=== PATIENT | female | born 1990 | race Caucasian/White ===

== ENCOUNTER → 2017-05-01 | Outpatient (CLI) | payer OTHER ==
--- NOTE | 2017-05-01 11:02 | US ---
EXAMINATION TYPE: US OB <= 14 wk fetus DATE OF EXAM: 05/01/2017 COMPARISON: NONE CLINICAL HISTORY: 046.91 Bleeding,Spotting - Antepartum. Light bleeding this weekend x 1 day. No pre vious ultrasound for this EXAM PERFORMED: Transabdominal (TA) EXAM MEASUREMENTS: GESTATIONAL AGE / DATING Dates by LMP: (8 weeks/5 days) EDC: 12/06/2017 Dates by Current Scan for: (12 weeks/2 days) EDC: 11/11/2017 MATERNAL ANATOMY Uterus: 10.7 x 8.4 x 7.0 Right Ovary: Not visualized due to overlying bowel gas Left Ovary: not visualized due to overlying bowel gas Post CDS / Adnexa: no free fluid Presence of free fluid: no Presence of subchorionic bleed: Midline/left hypoechoic heterogenous lesion = 4.3 x 3.5 x 1.6 cm GESTATION / SURVEY CRL: 5.6 cm (12 weeks/2 days) MSD: seen, not measured Yolk Sac (normal less than 6mm): not seen Heart Rate: 156 bpm Rhythm: Normal IUP: Viable IUP Date of LMP: 03/01/2017 Beta HcG (if available): not available IMPRESSION: LIve single IUP measuring 12 weeks 2 days. Midline/left subchorionic bleed seen.
== END | disposition home or self-care (01) ==
LOC: LABWHC1 09:49
PROVIDERS: ATTEND Obstetrics & Gynecology
DX: O46.91 Antepartum hemorrhage, unspecified, first trimester (principal)
CPT/HCPCS: 36415; 76801; 84702

== ENCOUNTER → 2017-07-14 | Outpatient (CLI) | payer OTHER ==
[2017-07-14 18:14] LABS: Glucose 95 mg/dL (74-99); Non-African American GFR(MDRD) >60 (>60 ml/min/1.73 sqM)
[2017-07-14 18:23] LABS: CH 30.5; CHCM 34.1; HCT 32.7 % (34.0-46.0); HDW 2.82; HGB 10.9 gm/dL (11.4-16.0); MCHC 33.3 g/dL (31.0-37.0); MCV 90.1 fL (80.0-100.0); Mean Platelet Volume 8.8; RBC 3.63 m/uL (3.80-5.40); RDW 14.3 % (11.5-15.5); WBC 8.2 k/uL (3.8-10.6)
[2017-07-14 19:27] LABS: Hepatitis B Surface Ag Index 0.05
[2017-07-15 07:16] LABS: Toxoplasma Antibody (IgG) <3.0 IU/mL (<7.2)
== END ==
LOC: LABWHC1 16:48
PROVIDERS: ATTEND Obstetrics & Gynecology
DX: O26.812 Pregnancy related exhaustion and fatigue, second trimester (principal); O99.282 Endocrine, nutritional and metabolic diseases complicating pregnancy, second trimester; E03.9 Hypothyroidism, unspecified; Z3A.00 Weeks of gestation of pregnancy not specified
CPT/HCPCS: 36415; 82565; 82947; 84439; 84443; 85027; 86762; 86777; 86778; 86780; 86850; 86900; 86901; 87340; 87390

== ENCOUNTER → 2017-08-29 | Outpatient (CLI) | payer OTHER ==
[2017-08-29 12:48] LABS: Glucose 3 Hour, Gest 109 mg/dL
== END | disposition home or self-care (01) ==
LOC: LABWHC1 08:24
PROVIDERS: ATTEND Obstetrics & Gynecology
DX: O99.810 Abnormal glucose complicating pregnancy (principal); Z3A.00 Weeks of gestation of pregnancy not specified
CPT/HCPCS: 36415; 82951; 82952; 84439; 84443

== ENCOUNTER → 2017-10-13 | Outpatient (CLI) | payer OTHER ==
--- NOTE | 2017-10-17 07:02 | US ---
EXAMINATION TYPE: US OB >= 14 wk fetus DATE OF EXAM: 10/13/2017 COMPARISON: None CLINICAL HISTORY: O36.63X0 Large for dates 3rd trimester TECHNIQUE: Transabdominal (TA) GESTATIONAL AGE / DATING Physician Established: (35 weeks/6 days) EDC: 11/11/17 Dates by LMP: unknown Dates by First Scan: (35 weeks/6 days) EDC: 11/11/17 Dates by Current Scan: (35 weeks/6 days) EDC: 11/11/17 SURVEY IUP: Single PLACENTA: Fundal PREVIA: No Previa ALONDRA: 12.9 cm CERVICAL LENGTH (transabdominal: norm > 3.0cm): 3.3 cm BIOMETRY PRESENTATION: Vertex LIE: Longitudinal BPD: 9.0 cm 36 weeks / 4 days HC: 32.9 cm 37 weeks / 3 days AC: 29.8 cm 33. weeks / 6 days FL: 6.9 cm 35 weeks / 3 days ESTIMATED WEIGHT IN GRAMS: 2536 grams ESTIMATED WEIGHT IN LBS/OZ: 5 lbs. 9 oz. WEIGHT PERCENTAGE BASED ON ESTABLISHED DATES: 24% HC/AC: 1.1 FL/AC: 23% slightly low HEART RATE: 165 bpm RHYTHM: Normal IMPRESSION: Single live intrauterine with a sonographic gestational age of 35 weeks and 6 days and orestes mated date of delivery of 11/04/1717, concordant with the physician established dates. ALONDRA within norm al limits at 12.9. Weight percentage based on established dates of 24%.
== END | disposition home or self-care (01) ==
LOC: RADUSWWP 15:43
PROVIDERS: ATTEND Obstetrics & Gynecology
DX: O36.63X0 Maternal care for excessive fetal growth, third trimester, not applicable or unspecified (principal); Z3A.35 35 weeks gestation of pregnancy
CPT/HCPCS: 76805

== ENCOUNTER 2017-10-20 19:12 | Outpatient (CLI) | payer OTHER ==
[2017-10-20 19:33] VITALS: BP 139/92; PULSE 100; RESP 16; TEMP 97.5
--- NOTE | 2018-01-05 12:09 | P.MSEPDOC ---
Presenting Problems - Arrival Data Date of Arrival on Unit: 10/20/17 Time of Arrival on Unit: 19:12 Mode of Transport: Ambulatory Medical History - Information : 2 Para: 1 Term: 1 : 0 Abortions: Spontaneous or Elective: 0 Number of Living Children: 1 - Gestational Age Gestational Age by MARÍA (wks/days): 36 Weeks and 6 Days Vital Signs - Temperature Temperature: 97.5 F Temperature Source: Temporal Artery Scan - Pulse Right Brachial Pulse Rate: 100 Pulse Assessment Method: Automatic Cuff - Respirations Respiratory Rate: 16 Oxygen Delivery Method: Room Air O2 Sat by Pulse Oximetry: 100 - Blood Pressure Right Arm Blood Pressure: 139/92 Blood Pressure Mean: 107 Blood Pressure Source: Automatic Cuff Medical Screen Scoring (Post) - Cervical Exam Dilation: 1-3 cm = 1 Effacement: More than 50% = 2 Membranes: Intact - Uterine Contractions Frequency: N/A Duration: N/A Intensity: N/A - Maternal Vital Signs Maternal Temperature: N/A - Assessment Heart Rate - NICHD Category: Category I (Normal) = 0 NST: Reactive Position: N/A Station: N/A - Total Score Total Score (Post): 3 - Post Treatment Level of Risk Post Treatment Level of Risk: Low (0-5) Physician Notification (Post) - Physician Notified Physician Notified Date: 10/20/17 Physician Notified Time: 19:47 Physician/Practitioner Notified:: kellen - Notification Comment Comment: d/c home, follow up with Dr. Seo Monday as scheduled. Rest over the weekend. Disposition - Disposition OB Disposition: Discharge to home Discharge Date: 10/20/17 Discharge Time: 19:50 I agree with the RN Medical Screening Exam: Yes Risk & Benefit of care provided described in d/c instruction: Yes Diagnosis: FALSE LABOR BEFORE 37 COMPLETED WEEKS OF GEST, THIRD TRI
== END 2017-10-20 19:50 | disposition home or self-care (01) ==
LOC: FBPOP 19:12
PROVIDERS: ATTEND Obstetrics & Gynecology
DX: O47.03 False labor before 37 completed weeks of gestation, third trimester (principal); Z3A.36 36 weeks gestation of pregnancy
CPT/HCPCS: 59025; 84112; G0463; 99213

== ENCOUNTER 2017-10-21 23:55 | Inpatient (IN) | payer OTHER ==
[2017-10-22] MEDS ORDERED: OXYTOCIN 10 UNIT/ML 1 ML VIAL IM PRN (00:29)
[2017-10-22] MEDS ORDERED: LIDOCAINE 1% (PF) 10 MG/ML (30 ML SDV) SQ PRN (00:29)
[2017-10-22] MEDS ORDERED: METHYLERGONOVINE 0.2 MG/ML 1 ML AMP IM PRN (00:29)
[2017-10-22] MEDS ORDERED: CARBOPROST TROMETHAMINE 250 MCG/ML 1 ML AMP IM PRN (00:29)
[2017-10-22] MEDS ORDERED: TERBUTALINE 1 MG/ML VIAL SQ PRN (00:29)
[2017-10-22] MEDS ORDERED: OXYTOCIN 20 UNITS/1000 ML NS 1,000 ML IV SCH ×2 (00:30→05:15)
[2017-10-22] MEDS: LACTATED RINGERS 1,000 ML IV SCH ×2 (00:58→03:02)
[2017-10-22 01:02] LABS: Basophils # (A) 0.1 k/uL (0-0.2); Basophils % (A) 1 %; Eosinophils # (A) 0.1 k/uL (0-0.7); Eosinophils % (A) 1 %; HGB 9.8 gm/dL (11.4-16.0); Hypochromasia Slight; Lymphocytes # (A) 2.5 k/uL (1.0-4.8); Lymphocytes % (A) 27 %; MCH 26.8 pg (25.0-35.0); MCHC 32.8 g/dL (31.0-37.0); MCV 81.7 fL (80.0-100.0); Mean Platelet Volume 8.9; Monocytes # (A) 0.6 k/uL (0-1.0); Monocytes % (A) 7 %; Neutrophils # (A) 5.9 k/uL (1.3-7.7); Neutrophils % (A) 64 %; Platelet Count 223 k/uL (150-450); Poikilocytosis Slight; RBC 3.67 m/uL (3.80-5.40); RDW 14.3 % (11.5-15.5); WBC 9.3 k/uL (3.8-10.6)
[2017-10-22 01:55] VITALS: BMI 36.7
--- NOTE | 2017-10-22 03:03 | P.HPOB ---
History of Present Illness H&P Date: 10/22/17 Chief Complaint: SROM 26 year old at 37 weeks 1 day presents with SROM at 1130pm on 10-21-17. The fluid was moderately bloody, she is mindy irregularly. heart tones 135-140 with moderate variability and reactive. Review of Systems All systems: negative Constitutional: Denies chills, Denies fever Eyes: denies blurred vision, denies pain Ears, nose, mouth and throat: Denies headache, Denies sore throat Cardiovascular: Denies chest pain, Denies shortness of breath Respiratory: Denies cough Gastrointestinal: Denies abdominal pain, Denies diarrhea, Denies nausea, Denies vomiting Genitourinary: Denies dysuria, Denies hematuria Musculoskeletal: Denies myalgias Integumentary: Denies pruritus, Denies rash Neurological: Denies numbness, Denies weakness Psychiatric: Denies anxiety, Denies depression Endocrine: Denies fatigue, Denies weight change Past Medical History Past Medical History: No Reported History Additional Past Medical History / Comment(s): OB history: First she had a vaginal delivery. This is her second and she had care with me since 15 weeks. O+, abs neg, Rub nonimmune, Treponemal ab neg, HIV NR, Hep B neg, toxo neg, GBS neg. Abnormal 1hr, normal 3hr GTT. HEr thyroid meds needed to be adjusted a few times during the . History of Any Multi-Drug Resistant Organisms: None Reported Past Surgical History: No Surgical Hx Reported Additional Past Anesthesia/Blood Transfusion Reaction / Comment(s): no hx of transfusion Past Psychological History: No Psychological Hx Reported Smoking Status: Never smoker Past Alcohol Use History: None Reported Past Drug Use History: None Reported - Past Family History Father Family Medical History: No Reported History Medications and Allergies Home Medications Medication Instructions Recorded Confirmed Type Levothyroxine Sodium [Synthroid] 175 mcg PO DAILY 10/22/17 10/22/17 History Pnv,Calcium 72/Iron/Folic Acid 1 tab PO DAILY 10/22/17 10/22/17 History [ Plus Tablet] Allergies Allergy/AdvReac Type Severity Reaction Status Date / Time No Known Allergies Allergy Verified 10/22/17 00:27 Exam Osteopathic Statement: *. No significant issues noted on an osteopathic structural exam other than those noted in the History and Physical/Consult. - Vital Signs Vital signs: Vital Signs Temp Pulse Resp BP Pulse Ox 10/22/17 00:10 97.9 F 86 16 125/80 99 Intake and Output 10/21/17 10/21/17 10/22/17 14:59 22:59 06:59 Other: Weight 97.069 kg Patient Weight 10/22/17 06:59 Weight 97.069 kg Heart: RRR Lungs: CTAB Abdomen: soft, nontender between contractions Extremeties: neg maia's Results Result Diagrams: 10/22/17 00:55 Abnormal Lab Results - Last 24 Hours (Table) 10/22/17 Range/Units 00:55 RBC 3.67 L (3.80-5.40) m/uL Hgb 9.8 L (11.4-16.0) gm/dL Hct 30.0 L (34.0-46.0) % Assessment and Plan (1) Spontaneous rupture of membranes Current Visit: Yes Status: Acute Code(s): [id number] - SNOMED Code(s): 996493152 Plan: 1. pitocin augmentation 2. pain control 3. anticipate normal vaginal delivery
--- NOTE | 2017-10-22 03:16 | P.MSEPDOC ---
Presenting Problems - Arrival Data Date of Arrival on Unit: 10/21/17 Time of Arrival on Unit: 23:57 Mode of Transport: Wheelchair - Complaint OB-Reason for Admission/Chief Complaint: Rule Out SROM Comment: SROM 2330 bloody fluid Medical History - Information : 2 Para: 1 Term: 1 : 0 Abortions: Spontaneous or Elective: 0 Number of Living Children: 1 - Gestational Age Gestational Age by MARÍA (wks/days): 37 Weeks and 1 Days Review of Systems - Review of Systems Constitutional: No problems Breast: No problems ENT: No problems Cardiovascular: No problems Respiratory: No problems Gastrointestinal: No problems Genitourinary: No problems Musculoskeletal: No problems Neurological: No problems Skin: No problems Vital Signs - Temperature Temperature: 97.9 F Temperature Source: Oral - Pulse Right Sitting Brachial Pulse Rate: 86 Pulse Assessment Method: Automatic Cuff - Respirations Respiratory Rate: 16 Oxygen Delivery Method: Room Air O2 Sat by Pulse Oximetry: 99 - Blood Pressure Right Arm Sitting Blood Pressure: 125/80 Blood Pressure Mean: 95 Blood Pressure Source: Automatic Cuff Medical Screen Scoring (Pre) - Cervical Exam Dilation: 1-3 cm = 1 Effacement: More than 50% = 2 Membranes: Ruptured = 3 - Uterine Contractions Frequency: > 5 minutes apart = 1 Duration: > 40 seconds = 2 Intensity: N/A - Maternal Vital Signs Maternal Temperature: N/A Signs of Preeclampsia: N/A Maternal Respirations: N/A - Pain Assessment Pain Location and Character: Abdomen Pain Scale Used: Numeric (1 - 10) Pain Intensity: 2 Pain Management Goal: 2 Pain Description: *Acute, Cramping Pain Radiation Location: n/a Pain Frequency: Intermittent Pain Duration: 30 Pain Duration Units: Minutes Pain Behavior: Vocalization Pain Aggravating Factors: None - Maternal Trauma Maternal Trauma: N/A - Assessment Baseline FHR: 135 Heart Rate - NICHD Category: Category I (Normal) = 0 NST: Reactive Position: N/A Station: N/A - Total Score Total Score (Pre): 9 - Level of Risk Level of Risk: Medium (6-9) Physician Notification (Pre) - Physician Notified Physician Notified Date: 10/22/17 Physician Notified Time: 00:19 Physician/Practitioner Notifed:: dr foreman Spoke With: dr foreman New Order Received: Yes - Notification Comment Comment: admit for labor Disposition - Disposition OB Disposition: Admit, LDRP Suite I agree with the RN Medical Screening Exam: Yes Risk & Benefit of care provided described in d/c instruction: Yes Diagnosis: ENCOUNTER FOR FULL-TERM UNCOMPLICATED DELIVERY
[2017-10-22] MEDS ORDERED: ACETAMINOPHEN TAB 325 MG TAB PO PRN (05:01)
[2017-10-22] MEDS ORDERED: WITCH HAZEL 1 EACH MED..PAD TOPICAL PRN (05:01)
[2017-10-22] MEDS ORDERED: MEASLES-MUMPS-RUBELLA VACC/PF 12,500 UNIT/0.5 ML VIAL SQ ONE (05:01)
[2017-10-22] MEDS ORDERED: diphenhydrAMINE 50 MG/ML 1 ML VIAL IVP PRN ×2 (05:01)
[2017-10-22] MEDS ORDERED: LANOLIN CREAM 5 GM TUBE TOPICAL PRN (05:01)
[2017-10-22] MEDS ORDERED: ZOLPIDEM 5 MG TAB PO PRN (05:01)
[2017-10-22] MEDS ORDERED: IBUPROFEN 600 MG TAB PO PRN (05:01)
[2017-10-22] MEDS ORDERED: HYDROCORTISONE 2.5% RECTAL CREAM 30 GM TUBE RECTAL PRN (05:01)
[2017-10-22] MEDS ORDERED: Acetaminophen-Codeine 300-30mg TAB PO PRN ×2 (05:01)
[2017-10-22] MEDS ORDERED: diphenhydrAMINE 50 MG CAP PO PRN (05:01)
[2017-10-22] MEDS ORDERED: BENZOCAINE/MENTHOL SPRAY 1 GM/SPRAY AEROSOL TOPICAL PRN (05:01)
[2017-10-22] MEDS ORDERED: SIMETHICONE 80 MG CHEWABLE PO PRN (05:01)
[2017-10-22] MEDS ORDERED: diphenhydrAMINE 25 MG CAP PO PRN (05:01)
--- NOTE | 2017-10-22 05:01 | P.PROBDLV ---
Vaginal Delivery Note - . Vaginal Delivery Note: 26-year-old presents at 37 weeks and 1 day with spontaneous rupture of membranes at 11:30 PM on 10/21/2017. When she presented she was 3 cm dilated, 90% effaced, and 0 station. She is mindy irregularly but not feeling them. She was grossly ruptured and Amniosure was positive, bloody fluid noted. heart tones 130-135 with moderate variability and reactive. Pitocin augmentation was started. She soon became uncomfortable and did get an epidural. Her cervix was completely dilated at 4:36 AM, she pushed and delivered a viable female infant at 4:38 am over intact perineum under epidural anesthesia. Head delivered OA, anterior shoulder delivered gentle downward traction followed by posterior shoulder and rest of body. Nose mouth bulb suctioned, cord clamped and cut, infant placed on mother's abdomen. Apgars 8, 9 , weight 6 lbs. 1 oz. Placenta delivered spontaneously, intact with three- vessel cord at 4:40 AM. Vagina, cervix, perineum inspected. First degree midline laceration was repaired with 3-0 Vicryl. Estimated blood loss 200 mL. Mother and baby in stable condition.
[2017-10-22] MEDS: SENNOSIDES-DOCUSATE SODIUM 1 EACH TAB PO SCH ×2 (09:56→23:44)
[2017-10-22] MEDS: LEVOTHYROXINE 75 MCG TAB PO SCH (13:36)
[2017-10-22] MEDS: LEVOTHYROXINE 100 MCG TAB PO SCH (13:36)
[2017-10-22 23:45] VITALS: RESP 16
[2017-10-23] MEDS ORDERED: SODIUM CHLORIDE 0.9% 100 ML BAG ONE (02:50)
[2017-10-23] MEDS ORDERED: fentaNYL (PF) 50 MCG/ML 5 ML AMP ONE (02:50)
[2017-10-23] MEDS ORDERED: BUPIVACAINE (PF) 0.25% 30 ML VIAL ONE (02:50)
[2017-10-23] MEDS: LEVOTHYROXINE 100 MCG TAB PO SCH (07:49)
[2017-10-23] MEDS: LEVOTHYROXINE 75 MCG TAB PO SCH (07:49)
[2017-10-23 08:04] VITALS: BP 126/75; PULSE 96; TEMP 98.3
--- NOTE | 2017-10-23 09:18 | P.DS ---
Providers Date of admission: 10/22/17 00:19 Expected date of discharge: 10/23/17 Attending physician: Akilah Seo Primary care physician: Stated None - Discharge Diagnosis(es) (1) Spontaneous rupture of membranes Current Visit: Yes Status: Resolved (2) Normal vaginal delivery Current Visit: Yes Status: Acute Hospital Course: Pt presented with SROM at 37 weeks 1 day. She underwent normal vaginal delivery with an epidural. Her post course was uncomplicated. She is voiding and ambulating without difficulty. Denies N/V, F/C, CP, SOB, calf pain. She will be discharged home PPD #1 in stable condition to follow up with me in 6 weeks. Plan - Discharge Summary New Discharge Prescriptions: No Action Pnv,Calcium 72/Iron/Folic Acid [ Plus Tablet] 1 tab PO DAILY Levothyroxine Sodium [Synthroid] 175 mcg PO DAILY Discharge Medication List Levothyroxine Sodium [Synthroid] 175 mcg PO DAILY 10/22/17 [History] Pnv,Calcium 72/Iron/Folic Acid [ Plus Tablet] 1 tab PO DAILY 10/22/17 [ History] Patient Instructions/Handouts: Vaginal Delivery (DC)
== END 2017-10-23 10:30 | disposition home or self-care (01) | DRG 775 ==
LOC: FBPOP 23:55 → 4FBP 10-22 00:19
PROVIDERS: ADMIT Obstetrics & Gynecology; ATTEND Obstetrics & Gynecology
PROC: 10E0XZZ Delivery of Products of Conception, External Approach (ICD-10-PCS; principal; 2017-10-22)
PROC: 0HQ9XZZ Repair Perineum Skin, External Approach (ICD-10-PCS; 2017-10-22)
PROC: 00HU33Z Insertion of Infusion Device into Spinal Canal, Percutaneous Approach (ICD-10-PCS; 2017-10-22)
PROC: 3E0R3NZ Introduction of Analgesics, Hypnotics, Sedatives into Spinal Canal, Percutaneous Approach (ICD-10-PCS; 2017-10-22)
DX: O70.0 First degree perineal laceration during delivery (principal); E07.9 Disorder of thyroid, unspecified; Z37.0 Single live birth; O99.284 Endocrine, nutritional and metabolic diseases complicating childbirth; Z3A.37 37 weeks gestation of pregnancy
CPT/HCPCS: 85025; 88307; 90707

== ENCOUNTER → 2018-03-20 | Outpatient (CLI) | payer OTHER ==
[2018-03-21 01:28] LABS: Thyroglobulin <0.20 ng/mL (1.60-59.90)
== END | disposition home or self-care (01) ==
LOC: LABWHC1 15:30
PROVIDERS: ATTEND Internal Medicine Endocrinology, Diabetes & Metabolism
DX: C73 Malignant neoplasm of thyroid gland (principal)
CPT/HCPCS: 36415; 84432; 84443; 86800

== ENCOUNTER → 2018-03-27 | Outpatient (CLI) | payer OTHER ==
--- NOTE | 2018-03-27 17:40 | US ---
EXAMINATION TYPE: US thyroid st tissue head/neck DATE OF EXAM: 03/27/2018 COMPARISON: NONE CLINICAL HISTORY: C73 MALIGNANT NEOPLASM OF THYROID GLAND. History of thyroid cancer, thyroidectomy 2 016 GLAND SIZE: Right Lobe: Surgically absent Left Lobe: Surgically absent NODULES RIGHT: # of nodules measured on right: 0 LEFT: # of nodules measured on left: 0 ISTHMUS: # of nodules measured in the isthmus: 0 Thyroid surgically absent. NO evidence of residual thyroid tissue IMPRESSION: Negative exam. No thyroid tissue seen. Bilateral thyroidectomy.
== END ==
LOC: RADUSWWP 16:08
PROVIDERS: ATTEND Internal Medicine Endocrinology, Diabetes & Metabolism
DX: C73 Malignant neoplasm of thyroid gland (principal); E89.0 Postprocedural hypothyroidism
CPT/HCPCS: 76536

== ENCOUNTER → 2018-07-26 | Outpatient (CLI) | payer MEDICAID ==
--- NOTE | 2018-07-26 14:45 | US ---
EXAMINATION TYPE: US thyroid st tissue head/neck DATE OF EXAM: 07/26/2018 COMPARISON: Thyroid ultrasound March 27, 2018 CLINICAL HISTORY: C73 Malignant Neoplasm Of Thyroid Gland. GLAND SIZE: CLINICAL HISTORY: C73 MALIGNANT NEOPLASM OF THYROID GLAND. History of thyroid cancer, thyroidectomy 2 016 GLAND SIZE: Right Lobe: Surgically absent Left Lobe: surgically absent NODULES RIGHT: # of nodules measured on right:0 LEFT: # of nodules measured on left: 0 ISTHMUS: # of nodules measured in the isthmus: 0 Thyroid surgically absent. NO evidence of residual thyroid tissue Bilateral neck scanned, no evidence of lymphadenopathy. IMPRESSION: Similar to prior study there is no suspicious nodule or recurrent tissue identified at level of thyro id bed.
[2018-07-26 21:46] LABS: Thyroglobulin <0.20 ng/mL (1.60-59.90)
== END | disposition home or self-care (01) ==
LOC: RADUSWWP 11:31
PROVIDERS: ATTEND Internal Medicine Endocrinology, Diabetes & Metabolism
DX: Z08 Encounter for follow-up examination after completed treatment for malignant neoplasm (principal); Z85.850 Personal history of malignant neoplasm of thyroid
CPT/HCPCS: 36415; 76536; 84432; 84443; 86800

== ENCOUNTER → 2019-02-08 | Outpatient (CLI) | payer MEDICAID ==
[2019-02-09 00:13] LABS: Thyroglobulin <0.20 ng/mL (1.60-59.90)
== END | disposition home or self-care (01) ==
LOC: LABWHC1 15:53
PROVIDERS: ATTEND Internal Medicine Endocrinology, Diabetes & Metabolism
DX: C73 Malignant neoplasm of thyroid gland (principal)
CPT/HCPCS: 36415; 84432; 84443; 86800

== ENCOUNTER → 2019-09-06 | Outpatient (CLI) | payer OTHER ==
--- NOTE | 2019-09-06 13:52 | US ---
EXAMINATION TYPE: US thyroid st tissue head/neck DATE OF EXAM: 09/06/2019 COMPARISON: CLINICAL HISTORY: C73 Malignant neoplasm of thyroid gland. Hx of thyroid cancer with whole thyroid gl and removed x 2 years ago. GLAND SIZE: Right Lobe: Surgically absent Left Lobe: Surgically absent Isthmus: Surgically absent Bilateral neck scanned. Lymph node appearing lesions seen in lateral left neck. Largest = 2.2 x 0.9 x 0.7 cm. IMPRESSION: Changes of prior total thyroidectomy without evidence for recurrent or residual tissue. Lymph node as discussed.
== END | disposition home or self-care (01) ==
LOC: RADUSWWP 13:08
PROVIDERS: ATTEND Internal Medicine Endocrinology, Diabetes & Metabolism
DX: R59.0 Localized enlarged lymph nodes (principal); C73 Malignant neoplasm of thyroid gland
CPT/HCPCS: 76536

== ENCOUNTER → 2019-11-28 | Outpatient (CLI) | payer OTHER | END | disposition home or self-care (01) | LOC: LABWHC1 11:13 | PROVIDERS: ATTEND Internal Medicine Endocrinology, Diabetes & Metabolism | DX: C73 Malignant neoplasm of thyroid gland (principal) | CPT/HCPCS: 36415; 84432; 84443; 86800 ==

== ENCOUNTER → 2020-06-01 | Outpatient (CLI) | payer OTHER | END | disposition home or self-care (01) | LOC: LABWHC1 11:46 | PROVIDERS: ATTEND Internal Medicine Endocrinology, Diabetes & Metabolism | DX: C73 Malignant neoplasm of thyroid gland (principal) | CPT/HCPCS: 36415; 84432; 84443; 86800 ==

== ENCOUNTER → 2020-08-10 | Outpatient (CLI) | payer OTHER | END | disposition home or self-care (01) | LOC: LABWHC1 15:14 | PROVIDERS: ATTEND Internal Medicine Endocrinology, Diabetes & Metabolism | DX: E89.0 Postprocedural hypothyroidism (principal) | CPT/HCPCS: 36415; 84443 ==

== ENCOUNTER → 2021-02-15 | Outpatient (CLI) | payer OTHER | END | disposition home or self-care (01) | LOC: LABWHC1 14:00 | PROVIDERS: ATTEND Internal Medicine Endocrinology, Diabetes & Metabolism | DX: C73 Malignant neoplasm of thyroid gland (principal) | CPT/HCPCS: 36415; 84432; 84443; 86800 ==

== ENCOUNTER → 2021-08-20 | Outpatient (CLI) | payer OTHER | END | disposition home or self-care (01) | LOC: LABWHC1 12:55 | PROVIDERS: ATTEND Internal Medicine Endocrinology, Diabetes & Metabolism | DX: C73 Malignant neoplasm of thyroid gland (principal) | CPT/HCPCS: 36415; 84432; 84443; 86800 ==

== ENCOUNTER → 2021-11-05 | Outpatient (CLI) | payer OTHER ==
--- NOTE | 2021-11-05 14:37 | US ---
EXAMINATION TYPE: US thyroid st tissue head/neck DATE OF EXAM: 11/05/2021 COMPARISON: Prior thyroid or neck ultrasound September 06, 2019. CLINICAL HISTORY: C73. Thyroidectomy 2016, assess for residual tissue Normal appearing bilateral thyroid beds with no residual tissue seen. Bilateral neck scanned, no evidence of lymphadenopathy. IMPRESSION: No suspicious recurrent tissue or abnormal adenopathy. No significant change from prior.
== END | disposition home or self-care (01) ==
LOC: RADUSWWP 13:33
PROVIDERS: ATTEND Internal Medicine Endocrinology, Diabetes & Metabolism
DX: C73 Malignant neoplasm of thyroid gland (principal)
CPT/HCPCS: 76536

== ENCOUNTER → 2022-07-26 | Outpatient (CLI) | payer OTHER | END | disposition home or self-care (01) | LOC: LABWHC1 12:41 | PROVIDERS: ATTEND Internal Medicine Endocrinology, Diabetes & Metabolism | DX: C73 Malignant neoplasm of thyroid gland (principal) | CPT/HCPCS: 36415; 84432; 84443; 86800 ==

== ENCOUNTER → 2023-01-27 | Outpatient (CLI) | payer OTHER | END | disposition home or self-care (01) | LOC: LABWHC1 12:42 | PROVIDERS: ATTEND Internal Medicine Endocrinology, Diabetes & Metabolism | DX: C73 Malignant neoplasm of thyroid gland (principal) | CPT/HCPCS: 36415; 84443; 86800 ==

== ENCOUNTER → 2023-08-07 | Outpatient (CLI) | payer OTHER | END | disposition home or self-care (01) | LOC: LABWHC1 13:12 | PROVIDERS: ATTEND Internal Medicine Endocrinology, Diabetes & Metabolism | DX: C73 Malignant neoplasm of thyroid gland (principal) | CPT/HCPCS: 36415; 84432; 84443; 86800 ==

== ENCOUNTER → 2024-07-03 | Outpatient (CLI) | payer OTHER | END | disposition home or self-care (01) | LOC: LABWHC1 11:34 | PROVIDERS: ATTEND Internal Medicine Endocrinology, Diabetes & Metabolism | DX: C73 Malignant neoplasm of thyroid gland (principal) | CPT/HCPCS: 36415; 84432; 84443; 86800 ==